=== PATIENT | female | born 1985 | race Caucasian/White ===

== ENCOUNTER 2020-02-20 07:42 | Outpatient (CLI) | payer BC, SELFPAY ==
[2020-02-20 18:08] LABS: SARS-CoV-2 RNA PCR Negative
== END 2020-02-20 07:43 | disposition home or self-care (01) ==
LOC: ANHCOVIDDT 07:45
PROVIDERS: PCP Internal Medicine; Visit Provider Obstetrics & Gynecology
DX: Z01.812 Encounter for preprocedural laboratory examination (principal); Z11.59 Encounter for screening for other viral diseases
CPT/HCPCS: 87635; C9803; U0003

== ENCOUNTER 2020-02-20 08:08 | Outpatient (CLI) | payer BC, SELFPAY ==
[2020-02-20 08:33] LABS: Hematocrit 43.2 % (37.0-47.0); Hemoglobin 14.7 g/dL (12.0-15.0); Mean Corpuscular Hemoglobin 31.9 pg (26-34); Mean Corpuscular Volume 93.7 fl (80-100); Platelet Count Result 218 k/mm3 (150-375); Red Blood Count 4.61 M/mm3 (4.2-5.4); Red Cell Distribution Width 13.5 % (11.5-14.5); White Blood Count 10.4 K/mm3 (4.5-10.0)
[2020-02-22 13:34] LABS: Rapid Plasma Reagin Non-Reactive (NonReactive)
== END 2020-02-20 08:09 | disposition home or self-care (01) ==
PROVIDERS: PCP Internal Medicine; Visit Provider Obstetrics & Gynecology
DX: Z34.93 Encounter for supervision of normal pregnancy, unspecified, third trimester (principal); Z3A.00 Weeks of gestation of pregnancy not specified
CPT/HCPCS: 36415; 85027; 86592; 86850; 86900; 86901

== ENCOUNTER 2020-02-22 09:53 | Inpatient (IN) | payer BC, SELFPAY ==
--- NOTE | 2020-02-03 14:47 | PC.NURSE ---
VERIFIED WITH OR SCHEDULE AND PATIENT--C/S ON 02/22/20 AT 1200 PATIENT GIVEN REQUISITION FOR PRE-OP LAB DRAW ON 02/20/20
[2020-02-22] VITALS (66 sets, daily range): BP systolic 89–173; BP diastolic 55–155; PULSE 57–119; RESP 16–20; TEMP 36.2–37.1; O2SAT 99–100; BMI 24.3
--- NOTE | 2020-02-22 08:58 | P.HP_ITS ---
H&P: HPI History of Present Illness Chief complaint: Pre-admit Narrative: 34 y/o at 39 3/7 weeks with a prior , here for repeat. has been essentially uncomplicated, aside from GBS bacteruria in the first trimester. Review of Systems 2 Review of Systems: All systems reviewed & are unremarkable except as noted in HPI and below PMFSH Surgical History Surgical History History of delivery Family History Family History Father High cholesterol Hypertension Social History Social History Substance use: never Spiritual care concerns: No Meds Home Medications and Allergies Home Medications Medication Instructions Recorded Confirmed Type PNV cmb#95-ferrous fumarate-FA 1 tablet PO DAILY 02/03/20 02/03/20 History [] cholecalciferol (vitamin D3) 50 mcg PO DAILY 02/03/20 02/03/20 History [Vitamin D3] Allergies Allergy/AdvReac Type Severity Reaction Status Date / Time bacitracin Allergy Mild RASH Verified 02/03/20 14:29 Exam Const: Orientation/consciousness: patient oriented x3 Other: Well- developed, well-nourished female in no acute distress. Neck: Thyroid: thyroid normal Lymphatic: no lymphadenopathy noted (in neck, axilla or inguinal nodes) Resp: Effort & Inspection: normal respiratory effort Auscultation: clear to auscultation bilaterally Cardio: Rate: regular rate Rhythm: regular rhythm Heart sounds: S1 normal heart sound present and S2 normal heart sound present GI: Other: ABD: Soft, nontender, gravid. Vertex. FHR 150bpm. : General: Yes no CVA tenderness Other: Cervix closed, thick Back/Spine/Pelvis: Back: no CVA tenderness Skin: General skin exam: normal color and no rashes or lesions noted Neuro: General: patient oriented x3 Extrem: Other: Extremities: nontender with no edema Psych: Mental Status: mental status grossly normal Affect: normal affect Assessment and Plan Assessment and plan (1) History of delivery: Code(s): Z98.891 - History of uterine scar from previous surgery Status: Acute Assessment and Plan: She desires repeat . She understands risks of surgery to include risks of anesthesia, risks of pain, infection, bleeding, blood products, thromboembolic phenomena and damage to adjacent structures such as bowel, bladder, ureters, blood vessels and nerves. She understands all these risks and elects to proceed with surgery. (2) Term : Code(s): Z34.90 - Encounter for supervision of normal , unspecified, unspecified trimester Status: Acute
--- NOTE | 2020-02-22 10:11 | LDADM ---
This patient, Lizzie Morelos, was admitted to Labor/Delivery/Recovery 120 on 02/22/20 at 09:53. Plans for scheduled section, pain management and were discussed with patient. Patient/family oriented to hospital policies and general routines including ID bracelet, bed and alarms, visiting hours, pain management, procedures, bathroom and other care routines, personal items, smoking policy, room service/diet and guest tray routines, security routines, and visiting hours. Patient/Family are encouraged to report perceived risks to care and to ask questions if they do not understand what they are told or what they should do. See OBIX for further documentation.
[2020-02-22] MEDS: LACTATED RINGERS 1,000 ML 125 ML IV CONT ×2 (10:43→13:08)
--- NOTE | 2020-02-22 11:36 | WPDANESEPPF ---
Anes - Initial Pre Proc Eval Procedure: Operation Date: 02/22/20 12:00 Proposed Procedures p Repeat Section - Damian cMkenna MD Date/Time: 02/22/20 11:36 Surgeon: Damian Mckenna MD Pre Op Diagnosis: scheduled Patient Data Age: 34 Gender: F Height: 5 ft 3 in Weight: 62.27 kg Last Vital Signs Temp 36.5 C 02/22/20 11:07 Pulse 91 02/22/20 10:15 BP 136/86 02/22/20 10:15 Allergies Allergy/AdvReac Type Severity Reaction Status Date / Time bacitracin Allergy Mild RASH Verified 02/03/20 14:29 Home Medications Medication Instructions Recorded Confirmed Type PNV cmb#95-ferrous fumarate-FA 1 tablet PO DAILY 02/03/20 02/03/20 History [] cholecalciferol (vitamin D3) 50 mcg PO DAILY 02/03/20 02/03/20 History [Vitamin D3] Patient hx anesthesia problems: none Family hx anesthesia problems: none PMFSH Surgical History Surgical History History of delivery Family History Family History Father High cholesterol Hypertension Social History Social History Smoking status: Never smoker Substance use: never Spiritual care concerns: No Anes - Eval Final PreProcedure Day of Procedure 02/22/20 11:36 Patient weight: normal Heart: regular rate and rhythm Lungs: clear to auscultation Airway: Mallampati scale class II Neurological: alert and oriented Last oral intake: >/= 8 hours ASA classification: II Emergent: no Anesthetic plan: proceed Anesthesia type and monitoring: regional spinal and standard monitoring Informed Consent: The patient's anesthetic plan and its attendant risks and benefits were discussed with the patient/family/POA. Questions were solicited and answers provided to the satisfaction of the patient/family/POA.
--- NOTE | 2020-02-22 12:59 | PM.OBPRVD ---
OB - Delivery Note Procedure Delivery date: 02/22/20 Procedure: Procedures Operation Date: 02/22/20 12:00 <No data on this case meets the specified criteria> Repeat LTCS Delivery monitor: external FHT Route of delivery: Specimen: Yes (cord blood) Estimated blood loss (mL): 365 Disposition: PACU Complications: None Narrative: The patient was taken to the operating room where she was prepared and draped in the usual sterile fashion in dorsal supine position with a leftward tilt. She received cefazolin preoperatively. Spinal anesthesia was found to be adequate. A Pfannenstiel skin incision was made along the previous scar line and was carried through to the underlying layer of the fascia. The fascia was incised in the midline and the incision was extended laterally. The fascia was dissected free of the underlying rectus muscles. The rectus muscles were in the midline. The peritoneum was identified, tented up and entered sharply. The peritoneal incision was extended superiorly and inferiorly with good visualization of the bladder. The bladder blade was placed. The vesicouterine peritoneum was identified, tented up and entered sharply. The incision was extended laterally and the bladder flap was developed. The bladder blade was replaced. The uterus was then incised sharply in a transverse fashion along the lower uterine segment. The incision was extended laterally. The infant's head was delivered atraumatically to the sterile field, followed by the body. The nose and mouth were bulb suctioned. After a delay, the cord was clamped and cut. The was handed off the field. Cord blood was collected. The placenta was removed manually and was passed off the field. The uterus was exteriorized and cleared of all clots and debris. The uterine incision was reapproximated using 0 Monocryl in a running, locked fashion. Excellent hemostasis resulted as did excellent reapproximation of the normal anatomy. The uterus was returned the abdomen. The pelvis was irrigated copiously with warmed normal saline. Rigorous hemostasis was assured. The fascial layer was reapproximated using 0 Vicryl in a running fashion. The skin was closed with a running, subcuticular stitch of 4 0 Vicryl. Dermaflex was applied externally. Sponge, lap, needle and instrument counts were correct. The patient was taken to the recovery room in stable condition. The went to the nursery in stable condition. I was present and scrubbed the entire procedure. Baby Date of : 02/22/20 Time of : 12:29 Weeks of gestation at delivery: 39 gender: Male Weight (pounds): 7 Weight (ounces): 2 presentation: vertex Placenta delivery description: Manual Removal and Normal Configuration cord vessel description: 3 Vessels and Nuchal Cord score one minute: 9 score five minutes: 9
--- NOTE | 2020-02-22 13:01 | P.DS_ITS ---
DS: Admitting Diagnosis Admitting Diagnosis Admitting Diagnosis: IUP at 39 3/7 weeks Prior DS: Discharge Diagnosis Discharge Diagnosis (1) Term : Code(s): Z34.90 - Encounter for supervision of normal , unspecified, unspecified trimester Status: Acute (2) History of delivery: Code(s): Z98.891 - History of uterine scar from previous surgery Status: Acute OB - DS: Summary OB Procedures : None OB Procedures Intrapartum: OB Procedures: : None Peripartum Data Procedures: Procedures Operation Date: 02/22/20 12:00 <No data on this case meets the specified criteria> Repeat LTCS Discharge Plan Discharge Attending physician on discharge: Damian Mckenna Discharging Clinician: Damian Mckenna Patient Disposition: Home, Self-Care Activity: may shower, may drive after 2 weeks and pelvic rest Diet: regular Wound Care Instructions: incision open to air Discharge Instructions: Call or return if temperature above 100.4? F, increased abdominal pain, increased vaginal bleeding or any new problems. Stand Alone Forms: General Discharge Information Follow-up/Referrals: Damian Mckenna MD [Physician] - (4 weeks) Discharge Medications: New hydrocodone-acetaminophen [[place]] 5-325 mg tablet 1 - 2 tablet PO Q6H PRN (Reason: pain) Qty: 30 RF: 0 ibuprofen 600 mg tablet 600 mg PO Q6H PRN (Reason: cramps) Qty: 30 RF: 0 No Action cholecalciferol (vitamin D3) [Vitamin D3] 50 mcg (2,000 unit) Capsule 50 mcg PO DAILY RF: 0 PNV cmb#95-ferrous fumarate-FA [] 28 mg iron- 800 mcg Tablet 1 tablet PO DAILY RF: 0 Date of admission: 02/22/20 09:53 Primary Care Provider: IssacCarol Admitting Provider: Damian Mckenna Attending physician on admission: Damian Mckenna
[2020-02-22] MEDS: MEPERIDINE HCL INJ 50 MG/ML AMPUL 25 MG IV PUSH (13:10)
[2020-02-22] MEDS: OXYTOCIN 30 UNITS/NS 500 ML 30 UNITS/500 ML BAG 125 UNITS IV CONT (15:26)
--- NOTE | 2020-02-22 16:57 | PC.NURSE ---
Patient transferred to post room #285 via stretcher. Support person present. Oriented to unit, room, information board, rooming in, admission packet and security measures. Patient verbalizes understanding.
[2020-02-22] MEDS: KETOROLAC 30 MG/ML VIAL (*BKC) IV PUSH (17:42)
[2020-02-22] MEDS: DEXTROSE 5%/0.45% SOD CHL 1,000 ML 125 ML IV CONT (19:40)
[2020-02-23] MEDS: KETOROLAC 30 MG/ML VIAL (*BKC) IV PUSH (01:19)
[2020-02-23 04:45] VITALS: BP 112/75; PULSE 77; RESP 18; TEMP 36.8; O2SAT 99
[2020-02-23 04:46] LABS: Basophils Absolute Auto 0.1 K/mm3 (0.0-0.1); Basophils Percent Auto 0.5 % (0.2-1.2); Eosinophils Absolute Auto 0.1 K/mm3 (0-0.3); Eosinophils Percent Auto 0.6 % (0-4.4); Hematocrit 39.3 % (37.0-47.0); Hemoglobin 13.4 g/dL (12.0-15.0); Immature Granulocyte Absolute 0.11 K/mm3 (0.00-0.031); Immature Granulocyte Percent A 0.6 % (0-0.5); Mean Corpuscular HGB Conc 34.1 g/dl (32-36); Mean Corpuscular Volume 93.8 fl (80-100); Mean Platelet Volume 9.7 fl (7.4-10.4); Monocytes Absolute Auto 1.2 K/mm3 (0.1-0.6); Monocytes Percent Auto 6.7 % (2.6-8.5); Neutrophils Absolute Auto 14.7 K/mm3 (1.3-6.7); Neutrophils Percent Auto 82.6 % (45.5-73.1); Platelet Count Result 202 k/mm3 (150-375); Red Blood Count 4.19 M/mm3 (4.2-5.4); Red Cell Distribution Width 13.5 % (11.5-14.5); White Blood Count 17.8 K/mm3 (4.5-10.0)
[2020-02-23] MEDS: MULTIVIT/MIN/PREN/FOL AC/IRON TABLET 1 TAB PO (07:19)
[2020-02-23] MEDS: IBUPROFEN 600 MG TABLET PO ×3 (07:19→19:43)
[2020-02-23] MEDS: DOCUSATE SODIUM 100 MG CAPSULE PO ×2 (07:19→16:46)
[2020-02-23 07:40] VITALS: BP 117/76; PULSE 76; RESP 18; TEMP 37.6; O2SAT 98
--- NOTE | 2020-02-23 09:19 | WPDANLDPN2 ---
Anes-Prog Note L&D Date/Time: 02/23/20 09:19 Comfortable throughout: section Neuraxial method: spinal Epidural/Spinal procedure site: clean & non-tender Neuro status: Neuro function grossly intact. Cardiovascular status: normal Respiratory status: normal Airway patency: baseline Mental status: baseline Post-Op hydration status: normal Vital Signs: Last Vital Signs Temp 37.6 C H 02/23/20 07:40 Pulse 76 02/23/20 07:40 Resp 18 02/23/20 07:40 BP 117/76 02/23/20 07:40 Pulse Ox 98 02/23/20 07:40 I/O: Intake & Output 02/22/20 02/23/20 02/23/20 23:59 07:59 15:59 Intake Total 1190 500 Output Total 650 1400 Balance 540 -900 Post-procedural complaints: none Patient feedback: Patient satisfied with anesthetic care.
--- NOTE | 2020-02-23 09:19 | WPDANLDNPN2 ---
Anes-Prog Note L&D-Neuraxial Date/Time: 02/23/20 09:19 Neuraxial medications: intrathecal PF morphine Opiod-related complaints: none Patient feedback: Patient satisfied with post-operative pain management.
--- NOTE | 2020-02-23 10:10 | PC.NURSE ---
Mother called out for assist with feeding. Mother reports tenderness with feeding, right nipple has a small bruise and line to center. Discussed has mostly likely had a shallow latch. Reviewed feeding cues, frequencies, duration of feedings, feeding elimination flow sheet, and signs of adequate intake. Demonstrated stimulation techniques to wake for feeding. Assisted with to breast. Reviewed positioning/alignment in cross cradle, holding breast in U hold and guided asymmetrical latch on. Infant was able to latch correctly. Infant nursed eagerly, with steady draws and frequent swallowing noted. Mother reports slight tenderness. Advised to hold breast during entire feeding, with stimulation to keep awake and effectively feeding. Demonstrated how to adjust latlch more deeply while feeding. Reviewed signs of a correct latch, effective nursing and suck swallow ratio. Infant was able to maintain latch without discomfort to mother. Nipple care reviewed. Instructed mother to call out for RN assistance if she is unable to latch infant for feeding or she has discomfort with nursing. Instructed feeding should be initiated three hours from start of last feeding or if feeding cues are noted before. Mother voiced understanding of information shared.
[2020-02-23 11:25] VITALS: BP 118/77; PULSE 90; RESP 18; TEMP 37; O2SAT 99
--- NOTE | 2020-02-23 12:32 | P.PNOB_ITS ---
OB - PN: Subj Subjective Date/time seen: 02/23/20 12:32 Narrative: Pain OK. Tolerating diet. Desires circumcision for son. OB - PN: Obj Data Labs CBC & Chem 7: 02/23/20 04:39 Labs: Laboratory Results - last 24 hr 02/23/20 04:39 WBC 17.8 H RBC 4.19 L Hgb 13.4 Hct 39.3 MCV 93.8 MCH 32.0 MCHC 34.1 RDW 13.5 Plt Count 202 MPV 9.7 Immature Gran % (Auto) 0.6 H Neut % (Auto) 82.6 H Lymph % (Auto) 9.0 L [place] % (Auto) 6.7 Eos % (Auto) 0.6 Baso % (Auto) 0.5 Lymph # (Auto) 1.60 [place] # (Auto) 1.2 H Eos # (Auto) 0.1 Baso # (Auto) 0.1 Abs Immat Gran (auto) 0.11 H Absolute Neuts (auto) 14.7 H Absolute Nucleated RBC 0.0 Nucleated RBC % 0.0 OB - PN A/P Plan Comments: A: POD#1, doing well. P: Routine care. Reviewed circ. Exam Narrative: Exam Narrative: AVSS I/O OK ABD soft, nontender, fundus firm. Incision c/d/i. EXT nontender
[2020-02-23] MEDS: SIMETHICONE 80 MG TAB.CHEW PO ×2 (13:13→19:43)
[2020-02-23 18:53] VITALS: BP 115/78; PULSE 72; RESP 16; TEMP 36.9; O2SAT 100
[2020-02-24] MEDS: IBUPROFEN 600 MG TABLET PO ×2 (05:29→14:21)
[2020-02-24 07:55] VITALS: BP 114/64; PULSE 72; RESP 18; TEMP 36.8; O2SAT 99
[2020-02-24] MEDS: DOCUSATE SODIUM 100 MG CAPSULE PO (08:30)
[2020-02-24] MEDS: MULTIVIT/MIN/PREN/FOL AC/IRON TABLET 1 TAB PO (08:30)
--- NOTE | 2020-02-24 08:30 | PC.NURSE ---
Patient viewed the discharge video Mother & Baby Care, The First Two Weeks . Patient was given the opportunity and encouraged to ask questions. Patient verbalized understanding of information shared and has been given the mother/baby guide for home reference.
--- NOTE | 2020-02-24 10:10 | PC.NURSE ---
Mother is able to independently latch infant with appropriate positioning/alignment, reporting tenderness is resolving with deeper latch. She denies any nipple discomfort, is feeding as required and waking infant to feed if needed. has had at lest 8 effective feedings in the past 24 hours, and is currently meeting outcomes for weight, output, jaundice and feeding frequencies. Mother states she feels confident to continue effective at home. Reviewed transition to breast milk, signs of adequate intake, and engorgement/relief. Instructed to call ICP if intake/output less than required. Reviewed regular medications mother is taking. Information provided per Amalia. Reviewed community resources on the [facility] website and in the Mom/Baby guide. Information on outpatient services provided. Mother has no further questions at this time.
--- NOTE | 2020-02-24 12:32 | PM.OBPNVD ---
OB - PN: Subj Subjective Date/time seen: 02/24/20 12:32 Narrative: Pain OK. Tolerating diet. Would like to go home. OB - PN: Obj Data Labs CBC & Chem 7: 02/23/20 04:39 OB - PN A/P Plan Comments: A: POD#2, doing well. P: Home to f/u 4 weeks. Exam Narrative: Exam Narrative: AVSS ABD soft, nontender, fundus firm. Incision c/d/i. EXT nontender
[2020-02-25 11:23] VITALS: BP 132/82; PULSE 77; RESP 20; TEMP 37.1
== END 2020-02-24 17:13 | disposition home or self-care (01) | DRG 788 ==
LOC: ANHLDR 13:03 → ANHOB2 15:19
PROVIDERS: Admitting Provider Obstetrics & Gynecology; PCP Internal Medicine; Visit Provider Obstetrics & Gynecology
PROC: 10D00Z1 Extraction of Products of Conception, Low, Open Approach (ICD-10-PCS; CPT 59514; principal; 2020-02-22 12:00)
DX: O34.211 Maternal care for low transverse scar from previous cesarean delivery (principal); Z37.0 Single live birth; Z3A.39 39 weeks gestation of pregnancy; O99.824 Streptococcus B carrier state complicating childbirth
CPT/HCPCS: 36415; 85025; A9270; J0131; J1200; J1885; J2175; J2274; J2590; J7120